=== PATIENT | male | born 1995 | race Caucasian/White ===

== ENCOUNTER 2017-02-05 15:05 | Emergency (ER) | payer MEDICAID ==
[2017-02-05 15:11] VITALS: TEMP 98.1
--- NOTE | 2017-02-05 15:20 | EDPHY ---
HPI/HX/ROS/PE/MDM Narrative: CHIEF COMPLAINT: Hearing loss HPI: The patient is a 21 y/o male complaining of gradually worsening hearing loss in both ears over the last week. He has had 2 previous episodes of earwax impactions that caused similar symptoms. He states the hearing in his left ear is 90% gone and 50% gone in his right ear. Today he says he is nearly unable to hear anything. He denies acute onset of symptoms, localized severe headache, weakness, paresthesias, or fever. He states he is otherwise healthy. REVIEW OF SYSTEMS: Aside from elements discussed in the HPI, a comprehensive 10-point review of systems was reviewed and is negative. PMH: Denies SOCIAL HISTORY: Student. Lives in [place]. PHYSICAL EXAM: General:Patient is alert, in no acute distress. ENT:Eyes are normal to inspection. Bilateral cerumen impaction. Neck: Normal inspection. Full range of motion. Respiratory:No respiratory distress. Skin: Normal color. No rash. Warm and dry. Extremities: Normal appearance. Neuro: Oriented x3. Nonfocal. ED Course: Procedure: Cerumen impaction removal Indication: bilateral cerumen impaction Risks, benefits, alternatives discussed with patient and consent obtained. Bilateral cerumen impaction identified. The patient was treated with irrigation , Cerumenex ear drops, and manual disimpaction. Following the procedure the patient's hearing improved mildly. The patient tolerated the procedure well. The procedure was performed by myself, Dr. Sampson, and ED jose martin. MDM: This patient presents with cerumen impaction. We were able to remove some wax, but patient will need ENT referral for definitive treatment. - Data Points Medications Given: Discontinued Medications Carbamide Peroxide (Debrox) 5 drop EACHEAR EDNOW ONE Stop: 02/05/17 15:36 Last Admin: 02/05/17 15:57 Dose: 5 drops General Time Seen by Provider: 02/05/17 15:12 Initial Vital Signs: Initial Vital Signs Temperature (C) 36.7 C 02/05/17 15:09 Heart Rate 85 02/05/17 15:09 Respiratory Rate 17 02/05/17 15:09 Blood Pressure 110/75 02/05/17 15:09 O2 Sat (%) 93 02/05/17 15:09 O2 Delivery Mode Room Air Allergies/Adverse Reactions: cefacil? Allergy (Uncoded 02/05/17 15:08) Home Medications: Medication Instructions Recorded NK [No Known Home Meds] 02/05/17 Departure - Departure Disposition: Home, Routine, Self-Care Clinical Impression: Impacted cerumen of both ears Condition: Good Instructions: Cerumen Impaction (ED) Additional Instructions: Follow up with ENT in the next 2-3 days. Referrals: NONE *PRIMARY CARE P,. [Primary Care Provider] - As per Instructions Jose Antonio Cameron MD [Medical Doctor] - As per Instructions Report Scribed for: Cecilio Sampson Report Scribed by: Evelin Merritt Date of Report: 02/05/17 Time of Report: 15:27 Physician Review and Approval Statement: Portions of this note were transcribed by an ED scribe. I personally performed the history, physical exam, and medical decision making; and confirm the accuracy of the information in the transcribed note.
[2017-02-05] MEDS ORDERED: CARBAMIDE PEROXIDE 15 ML BOTTLE EACHEAR ONE (15:35)
[2017-02-05] MEDS ORDERED: HYDROGEN PEROXIDE 236 ML BOTTLE TP ONE (15:37)
[2017-02-05 17:16] VITALS: BP 115/62; PULSE 63; RESP 16; O2SAT 97
== END 2017-02-05 17:15 | disposition home or self-care (01) ==
PROC: 3E1B78Z Irrigation of Ear using Irrigating Substance, Via Natural or Artificial Opening (ICD-10-PCS; principal; 2017-02-05)
DX: H61.23 Impacted cerumen, bilateral (principal)

== ENCOUNTER 2017-07-31 16:41 | Emergency (ER) | payer MEDICAID ==
[2017-07-31 16:58] VITALS: RESP 18; TEMP 97.9
--- NOTE | 2017-07-31 17:46 | EDPHY ---
H & P Stated Complaint: "95% hearing loss in both ears." Time Seen by Provider: 07/31/17 17:11 - Medical/Surgical History Hx Asthma: Yes Hx Chronic Respiratory Disease: No Hx Diabetes: No Hx Cardiac Disease: No Hx Renal Disease: No Hx Cirrhosis: No Hx Alcoholism: No Hx HIV/AIDS: No Hx Splenectomy or Spleen Trauma: No Other PMH: PMH: Asthma - Social History Smoking Status: Light smoker Constitutional: Initial Vital Signs Temperature (C) 36.6 C 07/31/17 16:55 Heart Rate 54 L 07/31/17 16:55 Respiratory Rate 18 07/31/17 16:55 Blood Pressure 143/89 H 07/31/17 16:55 O2 Sat (%) 97 07/31/17 16:55 O2 Delivery Mode Room Air Allergies/Adverse Reactions: cefacil? Allergy (Uncoded 02/05/17 15:08) Home Medications: Medication Instructions Recorded NK [No Known Home Meds] 02/05/17 Medical Decision Making ED Course/Re-evaluation: CHIEF COMPLAINT: Can not hear out of either your HISTORY OF PRESENT ILLNESS: 21-year-old gentleman who the at least yearly basis gets clogged ears with ear wax. He believes both his ears are clogged again. He denies any fevers chills. Denies any ear pain. Denies any trauma. He denies any other symptomatology. The right is worse than the left. REVIEW OF SYSTEMS: A 10 point review of systems was performed and is negative with the exception of the elements mentioned in the history of present illness. PHYSICAL EXAM: HR, BP, O2 Sat, RR. Temp noted General Appearance: Alert, well hydrated, appropriate, and non-toxic appearing. Head: Atraumatic without scalp tenderness or obvious injury Eyes: Pupils equal, round, reactive to light and accommodation, EOMI, no trauma , no injection. Ears: Both ears are completely clogged with cerumen in the external auditory canal and I cannot visualize the tympanic membrane on either side. Nose: Atraumatic, no rhinorrhea, clear. Throat: There is no erythema or exudates, no lesions, normal tonsils, mucus membranes moist. Neck: Supple, 2+ carotid upstroke, nontender, no lymphadenopathy. Respiratory: No retractions, no distress, no wheezes, and no accessory muscle use. Lungs are clear to auscultation bilaterally. Cardiovascular: Regular rate and rhythm, no murmurs, rubs, or gallops. Bilateral carotid, radial, dorsalis pedis, and posterior tibial pulses intact. Good capillary refill all extremities. Gastrointestinal: Abdomen is soft, nontender, non-distended, no masses, no rebound, no guarding, no peritoneal signs. Musculoskeletal: Normal active ROM of all extremities, atraumatic. Neurological: Alert, appropriate, and interactive. The patient has normal DTRs and non-focal cranial nerves, motor, sensory, and cerebellar exam. Skin: No rashes, good turgor, no nodules on palpation. Past medical history: Prior history of cerumen in the ear canals Past surgical history: None Family history: None Social history: Single, employed, does not abuse drugs and alcohol DIFFERENTIAL DIAGNOSIS: Includes but is not limited to: Swimmer's ear, otitis externa, otitis media, barotrauma, serous otitis, and cerumen impaction MEDICAL DECISION MAKING: This patient has bilateral cerumen obstruction in the external auditory canals. He would prefer if we did not try and clear out the canals but just give him referral to ENT since he likes their method of cleaning his ears superior to the ours. I have also recommended to him that in between his yearly ear cleaning see obtain some [id number] cerumen does all vein solution Departure - Departure Disposition: Home, Routine, Self-Care Clinical Impression: Impacted cerumen of both ears Condition: Good Instructions: Cerumen Impaction (ED) Referrals: NONE *PRIMARY CARE P,. [Primary Care Provider] - As per Instructions Jesse Ro MD [Medical Doctor] - As per Instructions
[2017-07-31 18:05] VITALS: BP 108/65; PULSE 71; O2SAT 98
== END 2017-07-31 18:04 | disposition home or self-care (01) ==
DX: H61.23 Impacted cerumen, bilateral (principal); J45.909 Unspecified asthma, uncomplicated; F17.200 Nicotine dependence, unspecified, uncomplicated